=== PATIENT | male | born 1960 | race Caucasian/White ===

== ENCOUNTER 2020-08-10 08:05 | Day surgery (SDC) | payer MEDICARE, OTHER ==
[~2020-08-10] VITALS: Ht 185.4 cm; Wt 100.2 kg
[~2020-08-10 08:05] MED LIST: ASPI81EC PO; DIAZ2 PO; HYDACE5 PO; NAPR500 PO; OXYACE5T PO; PRAV20 PO; SILSUL1TC TOP
--- NOTE | 2020-08-10 10:39 | NUR ---
08/10/20 1038 Dilip Palma BUPIVACAINE 0.5 % & LIDOCAINE 1% USED FOR INJECTION 1:1.
== END 2020-08-10 12:12 | disposition home or self-care (01) ==
LOC: ORSCSDS 08:05
PROVIDERS: Orthopaedic Surgery
PROC: 0PST04Z Reposition Right Finger Phalanx with Internal Fixation Device, Open Approach (ICD-10-PCS; principal; 2020-08-10 09:30)
DX: S62.614A Displaced fracture of proximal phalanx of right ring finger, initial encounter for closed fracture (principal); E78.5 Hyperlipidemia, unspecified; F17.220 Nicotine dependence, chewing tobacco, uncomplicated; Z79.899 Other long term (current) drug therapy
CPT/HCPCS: C1713; C1769; J0171; J0690; J1100; J2405; J2704; J3010

== ENCOUNTER 2021-02-07 11:47 | Emergency (ER) | payer OTHER, MEDICARE ==
[~2021-02-07] VITALS: Ht 185.4 cm; Wt 99.8 kg
[2021-02-07] MEDS ORDERED: CEPH500 PO (12:17)
== END 2021-02-07 13:09 | disposition home or self-care (01) ==
LOC: ER 11:47
DX: S51.811A Laceration without foreign body of right forearm, initial encounter (principal); I10 Essential (primary) hypertension; E78.00 Pure hypercholesterolemia, unspecified; Z91.041 Radiographic dye allergy status; W29.3XXA Contact with powered garden and outdoor hand tools and machinery, initial encounter
CPT/HCPCS: 12002; 99282

== ENCOUNTER 2021-07-29 11:55 | Emergency (ER) | payer OTHER, MEDICARE ==
[~2021-07-29] VITALS: Ht 185.4 cm; Wt 104.3 kg
[~2021-07-29 11:55] MED LIST changes: +CEPH500 PO
[2021-07-29] MEDS ORDERED: HYDCHL12.5 PO (12:19)
[2021-07-29] MEDS ORDERED: ATOR10 PO (12:19)
== END 2021-07-29 12:41 | disposition home or self-care (01) ==
LOC: ER 11:55
DX: S01.01XA Laceration without foreign body of scalp, initial encounter (principal); F17.220 Nicotine dependence, chewing tobacco, uncomplicated; Z91.048 Other nonmedicinal substance allergy status; Z79.899 Other long term (current) drug therapy; Z79.82 Long term (current) use of aspirin; W22.8XXA Striking against or struck by other objects, initial encounter
CPT/HCPCS: 12002; 90471; 90714; 99282-25